=== PATIENT | female | born 1995 | race Caucasian/White ===

== ENCOUNTER 2017-07-23 07:34 | Emergency (ER) | payer SELFPAY ==
[~2017-07-23] VITALS: Ht 160 cm; Wt 65.8 kg
[2017-07-23] MEDS ORDERED: Bacitracin Oint UD TOPIC ONE (07:45)
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
[2017-07-23 08:27] VITALS: BP 112/71
[2017-07-23 08:32] LABS: BASOPHILS % (AUTO) 1.3 % (0.0-2.0); EOSINOPHILS % (AUTO) 2.9 % (0.0-3.0); HEMATOCRIT 37.9 % (37.0-47.0); LYMPHOCYTES % (AUTO) 22.2 % (20.0-45.0); MEAN CORPUSCULAR VOLUME 89 FL (80-99); MONOCYTES % (AUTO) 10.1 % (1.0-10.0); NEUTROPHILS % (AUTO) 63.5 % (45.0-75.0); PLATELET COUNT 230 K/UL (150-450); RED BLOOD COUNT 4.25 M/UL (4.20-5.40); RED CELL DISTRIBUTION WIDTH 13.2 % (11.6-14.8); WHITE BLOOD COUNT 5.6 K/UL (4.8-10.8)
[2017-07-23 08:43] LABS: ANION GAP 10 mmol/L (5-15); BLOOD UREA NITROGEN 11 mg/dL (7-18); CALCIUM 9.1 MG/DL (8.5-10.1); CARBON DIOXIDE 26 MMOL/L (21-32); CHLORIDE 98 MMOL/L (98-107); CREATININE 0.8 MG/DL (0.55-1.30); POTASSIUM 3.1 MMOL/L (3.5-5.1); SODIUM 134 MMOL/L (136-145)
[2017-07-23 08:48] LABS: ALANINE AMINOTRANSFERASE 50 U/L (12-78); ALBUMIN 4.3 G/DL (3.4-5.0); ALKALINE PHOSPHATASE 59 U/L (46-116); ASPARTATE AMINO TRANSFERASE 100 U/L (15-37); BILIRUBIN,TOTAL 0.7 MG/DL (0.2-1.0)
[2017-07-23 09:23] VITALS: BP 117/81
[2017-07-23] MEDS ORDERED: Ketorolac 30mg Inj IV ONE (09:30)
[2017-07-23 13:00] VITALS: BP 118/81
[2017-07-23] MEDS ORDERED: BACITRACIN15 GM TOPIC (13:08)
[2017-07-23] MEDS ORDERED: ZOFRAN ODT4 MG ORAL (13:08)
[2017-07-23] MEDS ORDERED: IBUPROFEN600 MG ORAL (13:08)
[2017-07-23 13:19] VITALS: BP 117/81
== END 2017-07-23 13:19 | disposition home or self-care (01) ==
LOC: EDBD 07:34 → EMR 08:19
DX: S06.0X0A Concussion without loss of consciousness, initial encounter (principal); S80.02XA Contusion of left knee, initial encounter; S80.01XA Contusion of right knee, initial encounter; V98.8XXA Other specified transport accidents, initial encounter; Y92.9 Unspecified place or not applicable; E86.0 Dehydration; F43.10 Post-traumatic stress disorder, unspecified; E87.6 Hypokalemia; F41.9 Anxiety disorder, unspecified; Z79.899 Other long term (current) drug therapy; F10.20 Alcohol dependence, uncomplicated; Z87.42 Personal history of other diseases of the female genital tract
CPT/HCPCS: 36415; 80053; 80307; 81025; 85025; 96374; 96375; 99284; G0480; J1885; 80329; J8499